=== PATIENT | male | born 1950 | race Hispanic/Latino ===

== ENCOUNTER 2021-12-08 05:58 | Day surgery (SDC) | payer MEDICARE ==
[2021-12-05 09:29] LABS: BASOPHILS % (AUTO) 0.5 % (0.0-5.0); EOSINOPHILS % (AUTO) 1.4 % (0.0-8.0); HEMATOCRIT 43.8 % (42-54); MEAN CORPUSCULAR HEMOGLOBIN 32.1 pg (27.0-33.0); MEAN CORPUSCULAR HGB CONC 34.9 g/dL (32.0-36.0); MEAN CORPUSCULAR VOLUME 91.8 fL (79-99); MONOCYTES % (AUTO) 8.2 % (3.0-13.0); NEUTROPHILS % (AUTO) 48.5 % (40.0-77.0); PLATELET COUNT (AUTO) 311 K/uL (130-400); RED BLOOD CELL COUNT(AUTO) 4.77 MIL/uL (4.50-6.20); RED CELL DISTRIBUTION WIDTH 12.7 % (11.0-15.5); WHITE BLOOD COUNT (AUTO) 7.8 K/uL (4.8-10.8)
[2021-12-05 09:37] LABS: CREATININE 0.9 mg/dL (0.5-1.5); POTASSIUM 4.3 mmol/L (3.5-5.1)
[2021-12-05 13:33] VITALS: BP 172/93
[2021-12-08] VITALS (18 sets, daily range): BP systolic 128–148; BP diastolic 68–87
[~2021-12-08] VITALS: Ht 172.7 cm; Wt 69.9 kg
[~2021-12-08 05:58] MED LIST: IBUP-2733 PO; METF-446 PO
[2021-12-08] MEDS: CEFAZOLIN SODIUM 1 GM VIAL IVP SCH ×2 (06:00→08:34)
[2021-12-08] MEDS ORDERED: 0.9%NACL 1000ML 1,000 ML IV ONE (06:17)
[2021-12-08] MEDS ORDERED: PROPOFOL 10 MG/ML 20ML VIAL IV ONE (07:34)
[2021-12-08] MEDS ORDERED: FENTANYL CITRATE PF 50 MCG/1 ML 2ML VIAL ONE (07:34)
[2021-12-08] MEDS ORDERED: LIDOCAINE HCL-MPF 1% 5ML AMP IJ ONE (07:35)
[2021-12-08] MEDS ORDERED: ONDANSETRON 4MG INJ ONE (07:36)
[2021-12-08] MEDS ORDERED: EPHEDRINE SULFATE 50 MG/ML AMPULE ONE (07:36)
[2021-12-08] MEDS ORDERED: ACET-2079 PO (09:34)
[2021-12-08] MEDS ORDERED: CEPH500B PO (09:34)
== END 2021-12-08 11:45 | disposition home or self-care (01) ==
LOC: DAH 05:58
PROVIDERS: ATTEND Orthopaedic Surgery
DX: M23.321 Other meniscus derangements, posterior horn of medial meniscus, right knee (principal); I10 Essential (primary) hypertension; K21.9 Gastro-esophageal reflux disease without esophagitis; E11.9 Type 2 diabetes mellitus without complications; Z79.899 Other long term (current) drug therapy
CPT/HCPCS: 29881; 36415; 80048; 82948 ×2; 85025; 87635; 93005; A4215; A4221; A4222; A4223; A4649; A4663; A5120; A6223; A6450; C9803; J0690; J2405; J2704; J3010; J3490 ×2; J7030